=== PATIENT | female | born 1975 | race Caucasian/White ===

== ENCOUNTER 2017-05-03 12:25 | Outpatient (CLI) | payer BC ==
[~2017-05-03] VITALS: Ht 167.6 cm; Wt 121.2 kg
[2017-05-03] MEDS ORDERED: METF500T4 PO (15:23)
[2017-05-03] MEDS ORDERED: PARO20TA5 PO (15:23)
[2017-05-03] MEDS ORDERED: OMEP10CA4 PO (15:23)
[2017-05-03] MEDS ORDERED: BUSP15TA60 PO (15:23)
[2017-05-03 15:25] VITALS: BP 138/83
== END 2017-05-03 15:49 ==
LOC: PREOP 12:25
PROVIDERS: ATTEND Podiatrist Foot & Ankle Surgery
DX: Z01.818 Encounter for other preprocedural examination (principal); Z11.2 Encounter for screening for other bacterial diseases; S86.311A Strain of muscle(s) and tendon(s) of peroneal muscle group at lower leg level, right leg, initial encounter; X58.XXXA Exposure to other specified factors, initial encounter
CPT/HCPCS: 87081

== ENCOUNTER 2017-05-13 10:15 | Day surgery (SDC) | payer BC ==
[~2017-05-13] VITALS: Ht 167.6 cm; Wt 121.2 kg
[~2017-05-13 10:15] MED LIST: BUSP15TA60 PO; METF500T4 PO; OMEP10CA4 PO; PARO20TA5 PO
[2017-05-13] MEDS ORDERED: LACTATED RINGERS 1,000 ML IV PRN (10:24)
[2017-05-13] MEDS ORDERED: ceFAZolin INJECTION 1,000 MG in NS (IVPB) 100 ML IV ONE (10:30)
[2017-05-13] MEDS ORDERED: FAMOTIDINE 20MG/2ML IV (PEPCID) IV ONE (11:00)
[2017-05-13 11:02] VITALS: BP 141/77
[2017-05-13] MEDS ORDERED: LIDOCAINE PF 2% 5 ML (XYLOCAINE) VIAL ONE (12:39)
[2017-05-13] MEDS ORDERED: GLYCOPYRROLATE 0.2 MG/ML (ROBINUL) 2 ML VIAL ONE (12:39)
[2017-05-13] MEDS ORDERED: ROCURONIUM 10 MG/ML 5 ML SYRINGE IV ONE (12:39)
[2017-05-13] MEDS ORDERED: SEVOFLURANE (ULTANE) 15 ML INHAL SOLN ONE (12:39)
[2017-05-13] MEDS ORDERED: proPOfol 200 MG/20 ML (DIPRIVAN) VIAL IV ONE (12:39)
[2017-05-13] MEDS ORDERED: ONDANSETRON 4 MG/2 ML (SDV) Z0FRAN ONE (12:39)
[2017-05-13] MEDS ORDERED: NEOSTIGMINE 1 MG/ML 5 ML SYRINGE ONE (12:39)
[2017-05-13] MEDS ORDERED: MIDAZOLAM 2 MG/2 ML (VERSED) VIAL ONE (12:40)
[2017-05-13] MEDS ORDERED: fentaNYL INJECTION 100 MCG/2 ML AMP ONE (12:40)
[2017-05-13] MEDS ORDERED: BUPIVACAINE 0.25% 30 ML (SENSORCAINE) VIAL ONE (12:54)
--- NOTE | 2017-05-13 13:05 | Progress Note-Pre Operative ---
Pre-Operative Progress Note H&P Reviewed The H&P was reviewed, patient examined and no changes noted. Date Seen by Provider: May 13, 2017 Time Seen by Provider: 13:05 Date H&P Reviewed: May 13, 2017 Time H&P Reviewed: 13:05 Pre-Operative Diagnosis: Peroneal tendon tear right RAGHAV GIPSON DPM May 13, 2017 1:05 pm
[2017-05-13] MEDS ORDERED: DESFLURANE (SUPRANE) 15 ML INHAL SOLN ONE ×2 (14:11→14:49)
--- NOTE | 2017-05-13 14:13 | Anesthesia-General Post-Op ---
General Patient Condition Mental Status/LOC: Same as Preop Cardiovascular: Satisfactory Nausea/Vomiting: Absent Respiratory: Satisfactory Pain: Controlled Complications: Absent Post Op Complications Complications None Follow Up Care/Instructions Patient Instructions None needed. Anesthesia/Patient Condition Patient Condition Patient is doing well, no complaints, stable vital signs, no apparent adverse anesthesia problems. No complications reported per nursing. MEETA QUEVEDO CRNA May 13, 2017 14:13
[2017-05-13] MEDS ORDERED: LACTATED RINGERS 1,000 ML IV SCH (14:53)
--- NOTE | 2017-05-13 14:53 | Progress Note-Post Operative ---
Post-Operative Progess Note Surgeon (s)/Casino Banker (s) Surgeon RAGHAV GIPSON DPM Casino Banker: none Pre-Operative Diagnosis Peroneal tendon tear right Post-Operative Diagnosis Same Procedure & Operative Findings Date of Procedure 05/13/17 Procedure Performed/Findings Repair of Peroneal Tendon Right Anesthesia Type General Estimated Blood Loss Estimated blood loss (mL): Minimal Specimens/Packing Specimens Removed None RAGHAV GIPSON DPM May 13, 2017 2:52 pm
[2017-05-13] MEDS ORDERED: ACHD5005 PO (14:57)
[2017-05-13] MEDS ORDERED: ONDANSETRON 4 MG/2 ML (SDV) Z0FRAN IVP PRN ×2 (15:00→15:15)
[2017-05-13] MEDS ORDERED: HYDROcodone/APAP 5 MG/325 MG (LORTAB) TAB PO PRN (15:00)
[2017-05-13] MEDS ORDERED: morphine INJ 10 MG/ML 1ML (SYR OR VIAL) IVP PRN (15:15)
[2017-05-13] MEDS ORDERED: morphine INJ 4 MG/ML 1 ML (VIAL/SYRINGE) ONE (15:25)
[2017-05-13 15:50] VITALS: BP 132/77
[2017-05-13 16:20] VITALS: BP 117/63
--- NOTE | 2017-05-13 16:23 | Anesthesia-General Post-Op ---
General Patient Condition Mental Status/LOC: Same as Preop Cardiovascular: Satisfactory Nausea/Vomiting: Absent Respiratory: Satisfactory Pain: Controlled Complications: Absent Post Op Complications Complications None Follow Up Care/Instructions Patient Instructions None needed. Anesthesia/Patient Condition Patient Condition Above postop note entered in error. Patient was seen after discharge from PACU and doing well. No complaints, stable vital signs, no apparent adverse anesthesia problems. No complications reported per nursing. SUZIE CHAVES CRNA May 13, 2017 16:23
--- NOTE | 2017-05-13 16:40 | Physical Therapy Ortho Eval ---
PT Orthopedic Evaluation Type of Surgery Prior Level of Function Current Living Status: Spouse Locomotion (Upon Admit): Independent Subjective Subjective Nauseated. Agrees to PT. Spouse present. Supportive. has 2 steps to get up to her bedroom and bathroom. Entry Into Home: Stairs With Railing Other Obstacles: 2 curb like steps to enter; 2 steps inside Motor Control Motor Control: Motor Control WNL ROM ROM: WFL Strength Strength: WFL Transfer Transfers (B, C, W/C) (FIM): 5 Gait Gait Assistive Device: FWW Right Lower Extremity: Right Weight Bearing Status RLE: Non Weight Bearing Left Lower Extremity: Left Weight Bearing Status LLE: Full Weight Bearing Summary/Comments Pt able to hop short distances with FWW NWB right. Education on safety with gait. Pt has a knee scooter she plans to use. Education on correct technique and use of this. Pt and spouse verbalize understanding. Treatment Rendered Treatment: Gait Train, Step Train Education on going up/down steps (she does not have a handrail). Training in use of walker and wall for her stairs. also educated in scooting on her buttock technique and how to get up/down from the floor. Pt and Spouse verbalizes understanding. Pt able to hop up/down curb step. Spouse reports they have family that can assist as needed. Assessment/Goals Goal Time Frame: 1 Visit Safe Ambulation: Yes Plan Treatment Plan: Discharge PT/Family Agrees to Plan: Yes Time Time In: 1550 Time Out: 1630 Total Billed Treatment Time: 40 Billed Treatment Time visit EVL 40 YANELY CATHERINE PT May 13, 2017 16:39
[2017-05-13 16:50] VITALS: BP 122/76
[2017-05-13 18:26] VITALS: BP 122/76
--- NOTE | 2017-05-13 19:32 | OPERATIVE REPORT ---
DATE OF SERVICE: 05/13/2017 SURGEON: Inés Gipson DPM PREOPERATIVE DIAGNOSIS: Torn peroneus brevis tendon right foot. POSTOPERATIVE DIAGNOSIS: Torn peroneus brevis tendon right foot. PROCEDURE: Repair of the peroneus brevis tendon right foot. WOUND CLASS: Clean. ANESTHESIA: General. HEMOSTASIS: Pneumatic thigh tourniquet at 300 mmHg. INDICATION: This 41-year-old female presents complaining of a painful right foot. Conservative therapy was unsatisfactory and the patient would pursue the magnetic resonant imaging, which resulted in diagnosis of a partial tear longitudinally from the lateral malleolus down to the 5th metatarsal base area, which intraoperatively was consistent. The patient was agreeable to surgical intervention after risks and complications were discussed at length. No guarantees were to the patient and she is willing to proceed. DESCRIPTION OF PROCEDURE: The patient was brought back to the operating room table, placed in a secure supine position. General anesthetic was then induced. Appropriate timeout was performed. The patient was then placed in a secure lateral position. The right lower extremity had a tourniquet placed on the right thigh over several layers of padding. The right foot was then prepped and draped in normal sterile manner. The right foot was then elevated, allowed to exsanguinate after which the tourniquet was inflated to 300 mmHg. Attention was then directed to the lateral aspect of the right foot where a 10 cm longitudinal linear incision was created from the inferior aspect of the lateral malleolus and a curvilinear incision to the 5th metatarsal base. The incision was deepened in the same plane. Great care to identify and retract all vital neurovascular structures. All the necessary blood vessels were cauterized as encountered. The incision was deepened down to the peroneal tendon sheath where the sheath was incised with great care to protect the underlying soft tissue. Once the tendon sheath was opened up both the peroneus longus and brevis were inspected. There was a longitudinal tear on the anterior aspect of the peroneus brevis with multiple areas of bulbous tissue along the course of the peroneus brevis tendon. No abnormalities were identified to the peroneus longus tendon. Next, the peroneus brevis tendon was isolated and a longitudinal tear incised and the anterior of the tendon was inspected and there is some minor mucoid areas, but a longitudinal rent was identified and some loose tendon striations were resected sharply followed by roughening the area up with a hand rasp. The wound was flushed with copious amounts of normal saline. The majority of the tendon was found to be intact without pathology. The wound was flushed once again followed by closure. A baseball type stitch was utilized to tubulize the peroneus brevis tendon with 3-0 Vicryl. The wound was flushed once again after which closure was performed of the tendon sheath with 3-0 Vicryl soft tissue and subcutaneous closure was done with 4-0 Vicryl followed by skin closure with 4-0 Prolene in a horizontal mattress type stitch. Postoperative injection consisted of 15 mL of 0.5% Marcaine injecting the local infused at the surgical site. Postoperative dressing consisted of Betadine soaked Adaptic, sterile 4 x 4's, Sof-Rol. Three ABDs to protect the forefoot heel and posterior proximal leg followed by application of two Alden wraps over the 4-inch posterior splint. The tourniquet was released prior to application of this posterior splint and capillary refill time was noted to all digits to be within normal limits. The patient tolerated the anesthesia and procedure well, was transported from the operating room to the recovery area with vital signs stable and vascular status intact to all digits of the right foot. The patient is to be nonweightbearing. I will see her back in our office in 2 weeks' period of time or sooner if necessary. She was given a prescription for hydrocodone. Job ID: [id number] DocumentID: [id number] Dictated Date: 05/13/2017 15:03:50 Pet Counselor Date: 05/13/2017 19:31:52 Dictated By: INÉS GIPSON DPM
== END 2017-05-13 18:30 | disposition home or self-care (01) ==
LOC: SDC 10:15
PROVIDERS: ATTEND Podiatrist Foot & Ankle Surgery
DX: S86.311A Strain of muscle(s) and tendon(s) of peroneal muscle group at lower leg level, right leg, initial encounter (principal); E11.9 Type 2 diabetes mellitus without complications; G47.33 Obstructive sleep apnea (adult) (pediatric); F32.9 Major depressive disorder, single episode, unspecified; E66.01 Morbid (severe) obesity due to excess calories; Z68.41 Body mass index [BMI] 40.0-44.9, adult; Z79.84 Long term (current) use of oral hypoglycemic drugs; Z79.899 Other long term (current) drug therapy; X58.XXXA Exposure to other specified factors, initial encounter
CPT/HCPCS: 84703

== ENCOUNTER 2018-05-14 05:48 | Emergency (ER) | payer BC ==
[~2018-05-14] VITALS: Ht 167.6 cm; Wt 117.9 kg
[~2018-05-14 05:48] MED LIST changes: +ACHD5005 PO; +METF-397 PO; -METF500T4 PO
[2018-05-14] MEDS ORDERED: LORA10TA76 (06:36)
--- NOTE | 2018-05-14 06:36 | ED EENT ---
History of Present Illness General Chief Complaint: Ear Problems Stated Complaint: EARACHE Source: patient History of Present Illness Date Seen by Provider: May 14, 2018 Time Seen by Provider: 06:10 Timing/Duration: abrupt, this morning Severity: moderate Location: ear (R) Prearrival Treatment: no prearrival treatment Associated Symptoms: No change in hearing, No cough, No fever; nasal congestion /drainage; No sinus infection Allergies and Home Medications Allergies Coded Allergies: Sulfa (Sulfonamide Antibiotics) (Verified Allergy, Intermediate, N/V, 05/14) Home Medications Buspirone HCl 15 Mg Tablet, 15 MG PO BID, (Reported) Ciprofloxacin HCl/Dexameth 7.5 Ml Soln, 7.5 ML OT BID 4 gtts right ear bid Prescribed by: BRENDEN GUTHRIE on 05/14/18 0642 Metformin HCl 500 Mg Tablet, 500 MG PO BID, (Reported) Omeprazole 10 Mg Capsule.dr, 10 MG PO DAILY, (Reported) Patient Home Medication List Home Medication List Reviewed: Yes Review of Systems Review of Systems Constitutional: No chills, No fever Eyes: No Symptoms Reported Ears: Denies Dizziness; Pain; Denies Clear Discharge, Denies Purulent Discharge Nose: congestion Throat: no symptoms reported Respiratory: no symptoms reported Cardiovascular: no symptoms reported Gastrointestinal: no symptoms reported Past Eskstxa-Uohtzw-Rezsgd Hx Past Med/Social Hx: Reviewed Nursing Past Med/Soc Hx Patient Social History Recent Foreign Travel: No Contact w/Someone Who Travel: No Recent Hopitalizations: No Immunizations Up To Date Date of Influenza Vaccine: Dec 06, 2016 Seasonal Allergies Seasonal Allergies: Yes Past Medical History Reproductive Disorders: No Female Reproductive Disorders: Polycystic Ovarian Dis Sexually Transmitted Disease: No HIV/AIDS: No Gastroesophageal Reflux Loss of Vision: Denies Hearing Impairment: Denies Depression Adverse Reaction/Blood Tranf: No (N/A) Physical Exam Vital Signs Vital Signs - First Documented 05/14/18 05/14/18 06:07 06:46 Temp 98.2 Pulse 80 Resp 18 B/P (MAP) 165/97 (119) Pulse Ox 100 Height, Weight, BMI Height: 5'6.00" Weight: 267lbs. 4.0oz. 121.820153va; 43.1 BMI Method: General Appearance: WD/WN, no apparent distress Eyes: bilateral eye normal inspection Ears: right ear erythema, right ear TM red, right ear other (cerebrum impacted ); left ear TM normal Nose: normal inspection Mouth/Throat: normal mouth inspection Neck: non-tender, full range of motion Cardiovascular: normal peripheral pulses, regular rate, rhythm Respiratory: chest non-tender, lungs clear Gastrointestinal: non tender, soft Neurologic/Psychiatric: no motor/sensory deficits Skin: normal color Procedures/Interventions Ear : Ear Location: Right Foreign Body Removal: Impacted Cerumen Use of: Irrigation Progress/Conclusion pt with mild otitis media/externa after ceremen cleared Progress/Results/Core Measures Results/Orders Vital Signs/I&O 05/14/18 05/14/18 06:07 06:46 Temp 98.2 98.2 Pulse 80 80 Resp 18 B/P (MAP) 165/97 (119) 165/97 (119) Pulse Ox 100 100 Departure Impression Primary Impression: Impacted cerumen Qualified Codes: H61.21 - Impacted cerumen, right ear Additional Impression: Otitis media Qualified Codes: H66.91 - Otitis media, unspecified, right ear Disposition: 01 HOME, SELF-CARE Condition: Stable Departure-Patient Inst. Decision time for Depature: 06:39 Referrals: DALE LORENZO MD (PCP/Family) Primary Care Physician Patient Instructions: Ear Infections (Otitis Media) (DC), DR. HUT[facility] E[facility] , Ear Wax Impaction (DC) Scripts Ciprofloxacin HCl/Dexameth (Ciprodex Otic Suspension) 7.5 Ml Soln 7.5 ML OT BID for 7 Days, #1 EA 0 Refills 4 gtts right ear bid Prov: BRENDEN GUTHRIE DO 05/14/18 BRENDEN GUTHRIE DO May 14, 2018 06:36
[2018-05-14] MEDS ORDERED: NF-CIPDEC OT (06:42)
[2018-05-14 06:46] VITALS: BP 165/97
== END 2018-05-14 06:46 | disposition home or self-care (01) ==
LOC: EDUNIT# 05:48 → ER FS 05:51
DX: H61.21 Impacted cerumen, right ear (principal); H66.91 Otitis media, unspecified, right ear; K21.9 Gastro-esophageal reflux disease without esophagitis; F32.9 Major depressive disorder, single episode, unspecified; Z88.2 Allergy status to sulfonamides; Z79.84 Long term (current) use of oral hypoglycemic drugs; Z87.448 Personal history of other diseases of urinary system
CPT/HCPCS: 99282

== ENCOUNTER → 2018-05-26 | Outpatient (CLI) | payer BC ==
[~2018-05-26] MED LIST changes: +LORA10TA76; +NF-CIPDEC OT
== END ==
LOC: LABNPT 16:15
PROVIDERS: ATTEND Otolaryngology Otolaryngology/Facial Plastic Surgery
DX: H92.01 Otalgia, right ear (principal); H92.21 Otorrhagia, right ear
CPT/HCPCS: 87070